=== PATIENT | female | born 1995 | race Caucasian/White ===

== ENCOUNTER 2017-01-14 10:17 | Observation (INO) ==
[2017-01-13 11:00] LABS: Basophils % 0.5 %; Eosinophils # 0.2 K/mcL (0.0-0.6); Eosinophils % 1.8 %; Hematocrit 35.7 % (35.3-44.9); Hemoglobin 10.8 g/dL (11.5-15.4); Immature Granulocytes % 0.2 % (0-4); Lymphocytes # 2.2 K/mcL (0.6-4.6); Lymphocytes % 25.5 %; Mean Corpuscular HGB Conc 30.3 g/dL (31.6-35.5); Mean Corpuscular Hemoglobin 25.6 pg (28.0-33.3); Mean Corpuscular Volume 84.6 fL (83.0-100.0); Mean Platelet Volume 10.5 fL (9.4-12.4); Monocytes # 0.9 K/mcL (0.0-1.3); Monocytes % 10.4 %; Neutrophils # 5.4 K/mcL (1.6-8.9); Nucleated Red Blood Cells 0.2 /100 WBC (0); Platelet Count 259 K/mcL (140-400); Red Blood Count 4.22 M/mcL (3.82-4.97); Segmented Neutrophils % 61.6 %
[2017-01-13 11:05] LABS: Bilirubin,Urine Negative (Negative); Blood,Urine Moderate (Negative); Clarity,Urine Cloudy (Clear); Color,Urine Yellow (Yellow); Glucose,Urine (UA) Normal (Normal); Ketones,Urine Negative (Negative); Leukocyte Esterase,Urine Negative (Negative); Nitrite,Urine Negative (Negative); Protein,Urine >=1000 mg/dL (Neg-Trace); Specific Gravity,Urine > 1.030 (1.010-1.025); Urobilinogen,Urine Normal (Normal)
[2017-01-13 11:08] LABS: Bacteria,Urine Moderate per hpf (None-Few); RBC,Urine 15-30 per hpf (0-3); Squamous Epithelial Cell,Urine Many per lpf (None-Few); WBC,Urine 50-100 per hpf (0-3)
[2017-01-13 11:11] LABS: Creatinine,Urine 164 mg/dL
[2017-01-13 11:12] LABS: Alanine Aminotransferase 6 Units/L (0-55); Aspartate Amino Transferase 22 Units/L (5-34); BUN/Creatinine Ratio 7 (6-26); Blood Urea Nitrogen 7 mg/dL (7-20); Lactate Dehydrogenase 259 Units/L (159-327); Uric Acid 5.2 mg/dL (2.6-6.0); eGFR For African Americans > 60 (> 60); eGFR For Non-African Americans > 60 (> 60)
[2017-01-13 11:28] LABS: Anisocytosis 2+ (Not Present); Platelet Estimate Normal (Normal); Polychromasia 1+ (Not Present)
[2017-01-13 11:30] LABS: Hyaline Casts,Urine Few per lpf (None-Few)
--- NOTE | 2017-01-13 11:51 | OB/GYN History & Physical ---
Date of Encounter: 01/13/17 Time of Encounter: 11:33 Assessment and Plan (1) induced hypertension Current visit: Yes Status: Acute Continues to have elevated BP 130's-140's/93-100 PIH labs drawn and negative. Urine with elevated protein, lab at this time unable to assess urine P/C ratio due to high level of protein. Unsure if protein is elevated by blood, pt denies vaginal bleeding so will obtain st.cath specimen for urinalysis and P/C ratio. Vaginal exam 1.5/80/0 posterior per RN Discussed with Dr. Arroyo. Will make plan after new urine results obtained. Qualifiers: Trimester: third trimester Qualified Code(s): O13.3 - Gestational [ -induced] hypertension without significant proteinuria, third trimester (2) 34 weeks gestation of Current visit: Yes Status: Acute (3) NST (non-stress test) reactive Current visit: Yes Status: Acute Baseline 130 History of Present Illness Chief complaint: Evaluation for PIH HPI: Ms. Spaulding is a 21 year old female at 34 +4 presenting for evaluation of PIH from office following an outpatient blood pressure of 140/92. Associated symptoms include intermittent shortness of breath at minimal activity, such as "climbing out of bed" with an onset of 2 weeks ago. Endorses mild orthopnea. Pt noticed a sudden onset of bilateral LE swelling three weeks ago, which gradually increases over the day. ROS: Pt denies following features, headache ,visual disturbance, photophobia, blurred vision or scotoma ,epigastric pain, restrosternal chest pain,altered mental status. pt also denies urgency, or pain with urination. She endorses active movement, denies vaginal bleeding, contractions or leaking of fluid. Pt's antepatrum anemia with requirement for iron transfusions (5). Pt unware of FMHx of gestational induced hypertension and denies PMHX of HTN. Past Med Surg Social Fam HX - Past Medical History Source: patient Medical history: no medical history Psychiatric history: no psych history - Past Surgical History Surgical History: non-contributory - Social History Smoking Status: Never smoker Smokeless Tobacco Status: No Alcohol use: none Drug use: none - Family History Mother Hx Family Medical Disorders: No (STATES MOTHER HAS NO HEALTH PROBLEMS) Obstetrical History - Pregnancies : 1 Para: 0 Term: 0 : 0 Ab's: 0 Livin Medications and Allergies Vit No.129/Iron/FA [ Tablet] 1 each PO DAILY #30 tablet [Rx] Metoclopramide [Reglan] 10 mg PO QIDAC 12/14/16 [History] Ondansetron [Zofran ODT] 8 mg SL Q4HR PRN 12/14/16 [History] Allergies No Known Allergies Allergy (Verified 01/11/17 13:43) Review of System OB - Cardiovascular Cardiovascular: edema, no chest pain at rest, no chest pain with activity, no irregular heart rhythm, no palpitations - Respiratory Respiratory: dyspnea, dyspnea on exertion, no cough, no pain on inspiration - Gastrointestinal Gastrointestinal: no abdominal pain - Genitourinary Genitourinary: no abnormal vaginal bleeding, no flank pain, no urinary hesitancy Exam - Constitutional Constitutional: no acute distress, thin - HEENT HEENT: PERRL, Normocephaly, Mucus Membranes Moist, Mucus Membranes Dry - Lungs Respiratory exam: CTAB (On my assesment. lungs CTA), rales (fine, lower) - Cardiovascular Cardiovascular exam: RRR, +S1, +S2 - Abdomen Abdomen: Present: bowel sounds normal, gravid, non tender - Extremities Extremities exam: pedal edema (2+ pitting) Deep Tendon Reflex Grade: 4+ Non-Sustained Clonus (lower extremites with non sustained clonus.) - Cervix Dilation: 1 (per RN exam) Effacement: 80 Station: 0 - Uterus Uterus exam: Present: normal size, normal contour Results Result Diagrams: 01/13/17 10:40 01/13/17 10:40 Abnormal lab results Hgb 10.8 g/dL (11.5-15.4) L 01/13/17 10:40 MCH 25.6 pg (28.0-33.3) L 01/13/17 10:40 MCHC 30.3 g/dL (31.6-35.5) L 01/13/17 10:40 Nucleated RBCs/100 WBC 0.2 /100 WBC (0) H 01/13/17 10:40 Polychromasia 1+ (Not Present) A 01/13/17 10:40 Anisocytosis 2+ (Not Present) A 01/13/17 10:40 Urine Clarity Cloudy (Clear) A 01/13/17 10:40 Ur Specific [place] > 1.030 (1.010-1.025) H 01/13/17 10:40 Urine Protein >=1000 mg/dL (Neg-Trace) H 01/13/17 10:40 Urine Blood Moderate (Negative) H 01/13/17 10:40 Urine Microscopic RBC 15-30 per hpf (0-3) H 01/13/17 10:40 Urine Microscopic WBC 50-100 per hpf (0-3) H 01/13/17 10:40 Ur Squamous Epith Cells Many per lpf (None-Few) H 01/13/17 10:40 Urine Bacteria Moderate per hpf (None-Few) H 01/13/17 10:40 Ur Culture Indicated? YES (NO) A 01/13/17 10:40 All other labs normal. - VTE Reasons for not Prescribing Prophylaxis: Treatment not Indicated - Low risk for VTE
[2017-01-13 13:13] LABS: Bilirubin,Urine Negative (Negative); Blood,Urine Moderate (Negative); Clarity,Urine Cloudy (Clear); Color,Urine Yellow (Yellow); Glucose,Urine (UA) Normal (Normal); Ketones,Urine Negative (Negative); Leukocyte Esterase,Urine Negative (Negative); Nitrite,Urine Negative (Negative); Protein,Urine >=1000 mg/dL (Neg-Trace); Specific Gravity,Urine 1.018 (1.010-1.025); Urobilinogen,Urine Normal (Normal)
[2017-01-13 13:17] LABS: Bacteria,Urine Few per hpf (None-Few); Squamous Epithelial Cell,Urine Many per lpf (None-Few)
[2017-01-13 13:34] LABS: Hyaline Casts,Urine Moderate per lpf (None-Few)
[2017-01-13] MEDS: Ringers Solution, Lactated 1,000 ML IVC SCH (14:59)
[2017-01-13 15:11] LABS: Protein/Creatinine Ratio,Urine 15.71 mg/mg (0-0.20)
[2017-01-13] MEDS: cephALEXin 500 MG CAPSULE PO SCH ×2 (16:27→20:41)
[2017-01-14] MEDS: Ringers Solution, Lactated 1,000 ML IVC SCH ×2 (00:20→08:11)
[2017-01-14 04:42] LABS: Basophils % 0.4 %; Eosinophils # 0.1 K/mcL (0.0-0.6); Hematocrit 29.3 % (35.3-44.9); Immature Granulocytes % 0.6 % (0-4); Lymphocytes % 27.9 %; Mean Corpuscular HGB Conc 30.4 g/dL (31.6-35.5); Mean Corpuscular Hemoglobin 25.9 pg (28.0-33.3); Mean Corpuscular Volume 85.2 fL (83.0-100.0); Mean Platelet Volume 10.8 fL (9.4-12.4); Monocytes # 0.6 K/mcL (0.0-1.3); Monocytes % 8.4 %; Neutrophils # 4.4 K/mcL (1.6-8.9); Nucleated Red Blood Cells 0.3 /100 WBC (0); Platelet Count 207 K/mcL (140-400); Red Blood Count 3.44 M/mcL (3.82-4.97); Segmented Neutrophils % 61.7 %
[2017-01-14 04:51] LABS: Alanine Aminotransferase 6 Units/L (0-55); Aspartate Amino Transferase 18 Units/L (5-34); BUN/Creatinine Ratio 9 (6-26); Blood Urea Nitrogen 7 mg/dL (7-20); Lactate Dehydrogenase 209 Units/L (159-327); Uric Acid 4.7 mg/dL (2.6-6.0); eGFR For African Americans > 60 (> 60); eGFR For Non-African Americans > 60 (> 60)
[2017-01-14 04:54] LABS: Hemoglobin 8.9 g/dL (11.5-15.4)
[2017-01-14 05:06] LABS: Protein/Creatinine Ratio,Urine 12.35 mg/mg (0-0.20)
[2017-01-14 05:13] LABS: Anisocytosis 3+ (Not Present); Burr Cells 2+ (Not Present); Platelet Estimate Normal (Normal); Poikilocytosis 1+ (Not Present); Schistocytes 1+ (Not Present)
[2017-01-14 05:36] LABS: Bilirubin,Urine Negative (Negative); Blood,Urine Large (Negative); Clarity,Urine Clear (Clear); Color,Urine Dark Yellow (Yellow); Glucose,Urine (UA) Normal (Normal); Ketones,Urine Negative (Negative); Leukocyte Esterase,Urine Negative (Negative); Nitrite,Urine Negative (Negative); PH,Urine 6.5 pH Units (5.0-8.0); Protein,Urine >=1000 mg/dL (Neg-Trace); Specific Gravity,Urine 1.028 (1.010-1.025); Urobilinogen,Urine Normal (Normal)
[2017-01-14 05:38] LABS: RBC,Urine 50-100 per hpf (0-3); WBC,Urine 30-50 per hpf (0-3)
[2017-01-14 05:49] LABS: Squamous Epithelial Cell,Urine Many per lpf (None-Few)
[2017-01-14 05:50] LABS: Bacteria,Urine Many per hpf (None-Few); Hyaline Casts,Urine Few per lpf (None-Few)
--- NOTE | 2017-01-14 05:56 | OB/GYN Progress Note ---
Date of Encounter: 01/14/17 Time of Encounter: 05:48 - Assessment and Plan (1) induced hypertension Current Visit: Yes Status: Acute Denies PIH symptoms. AM labs negative except P/C ratio of 12, but also shows large blood Will discuss lab results and plan of care with Dr. Arroyo. Qualifiers: Trimester: third trimester Qualified Code(s): O13.3 - Gestational [ -induced] hypertension without significant proteinuria, third trimester (2) 34 weeks gestation of Current Visit: Yes Status: Acute (3) NST (non-stress test) reactive Current Visit: Yes Status: Acute Baseline 130 Subjective - Subjective Interval history: Pt states feels well. Reports good movement, denies leaking of fluid or contractions. Pt has had some red/brown discharge from previous vaginal exams. Denies headache, visual changes, abdominal pain. Antepartum ROS: vaginal bleeding, movement normal, no new complaints, no loss of fluid, no contractions Objective - Vital Signs Vital Signs: Intake and Output 01/13/17 01/13/17 01/14/17 15:59 23:59 07:59 Intake Total 1000 / 1000 1000 / 1000 Balance 1000 / 1000 1000 / 1000 Intake: IV Fluids 1000 / 1000 1000 / 1000 Lactated Ringers 1,000 ML 1000 / 1000 1000 / 1000 @ 125 mls/hr IVC .Q8H [facility] Rx#:[id number] Other: Weight 60.8 kg - Exam FHR: auscultation normal FHR comments: Baseline 135 Auscultation: bilateral: normal Abdomen: Present: normal appearance, soft, gravid Cervical dilation: 2/80/ Per RN exam - Labs Labs: Abnormal lab results RBC 3.44 M/mcL (3.82-4.97) L 01/14/17 04:05 Hgb 8.9 g/dL (11.5-15.4) L D 01/14/17 04:05 Hct 29.3 % (35.3-44.9) L 01/14/17 04:05 MCH 25.9 pg (28.0-33.3) L 01/14/17 04:05 MCHC 30.4 g/dL (31.6-35.5) L 01/14/17 04:05 Nucleated RBCs/100 WBC 0.3 /100 WBC (0) H 01/14/17 04:05 Polychromasia 1+ (Not Present) A 01/13/17 10:40 Poikilocytosis 1+ (Not Present) A 01/14/17 04:05 Anisocytosis 3+ (Not Present) A 01/14/17 04:05 [place] Cells 2+ (Not Present) A 01/14/17 04:05 Schistocytes 1+ (Not Present) A 01/14/17 04:05 Ur Specific [place] 1.028 (1.010-1.025) H 01/14/17 04:10 Urine Protein >=1000 mg/dL (Neg-Trace) H 01/14/17 04:10 Urine Blood Large (Negative) H 01/14/17 04:10 Urine Microscopic RBC 5-15 per hpf (0-3) H 01/13/17 12:40 Urine Microscopic WBC 5-15 per hpf (0-3) H 01/13/17 12:40 Ur Squamous Epith Cells Many per lpf (None-Few) H 01/13/17 12:40 Hyaline Casts Moderate per lpf (None-Few) H 01/13/17 12:40 Ur Culture Indicated? YES (NO) A 01/13/17 12:40 Protein/Creatinin Ratio 12.35 mg/mg (0-0.20) H 01/14/17 04:10 Urine Total Protein 1716 mg/dL (1-14) H 01/14/17 04:10
--- NOTE | 2017-01-14 08:28 | OB/GYN Progress Note ---
Date of Encounter: 01/14/17 Time of Encounter: 08:20 - Assessment and Plan (1) First in adolescent 16 years of age or older in third trimester Current Visit: Yes Status: Acute (2) 34 weeks gestation of Current Visit: Yes Status: Acute (3) Gross hematuria Current Visit: Yes Status: Acute We will order a renal ultrasound to rule out stones, urinary catheter placed repeat urinalysis and protein creatinine ratio, hematology consult placed, repeat PIH labs at noon. (4) induced hypertension Current Visit: Yes Status: Acute Qualifiers: Trimester: third trimester Qualified Code(s): O13.3 - Gestational [ -induced] hypertension without significant proteinuria, third trimester (5) Iron deficiency anemia during , antepartum Current Visit: No Status: Acute Subjective - Subjective Interval history: patient having no complaints at this time states she is not having any headaches blurred vision or scotoma. Patient is still extremely edematous both lower extremities and labia. Patient's hemoglobin did drop throughout the night and continues to show large amounts of blood in the urine. Patient was examined through the night and this blood might be contamination from the vagina. She states she does have bleeding after the examinations. 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 We will consult later today requested a bilirubin and reticulocyte. We will go ahead and repeat PIH labs place a catheter get another urinalysis on the patient as a catheter specimen and repeat protein creatinine ratio which is extremely high. We will get an ultrasound of the kidneys and bladder to rule out stones as a course at this gross hematuria since she is not complaining of any dysuria urgency or frequency. Baby still looks appropriate on the monitor occasional contractions seen. Patient on admission yesterday weight 60 kg this morning she weighs 63 kg. She did get fluid throughout the night. Objective - Vital Signs Vital Signs: Intake and Output 01/13/17 01/14/17 01/14/17 23:59 07:59 15:59 Intake Total 1000 / 1000 1000 / 1000 Balance 1000 / 1000 1000 / 1000 Intake: IV Fluids 1000 / 1000 1000 / 1000 Lactated Ringers 1,000 ML 1000 / 1000 1000 / 1000 @ 125 mls/hr IVC .Q8H [facility] Rx#:[id number] - Exam FHR: category 1 FHR comments: heart tones 140s reassuring occasional contractions and Auscultation: bilateral: normal Abdomen: Present: normal appearance Uterus: Present: normal Comments: Patient has +2+3 pitting edema lower extremities edema of the perineum. - Labs Labs: Abnormal lab results RBC 3.44 M/mcL (3.82-4.97) L 01/14/17 04:05 Hgb 8.9 g/dL (11.5-15.4) L D 01/14/17 04:05 Hct 29.3 % (35.3-44.9) L 01/14/17 04:05 MCH 25.9 pg (28.0-33.3) L 01/14/17 04:05 MCHC 30.4 g/dL (31.6-35.5) L 01/14/17 04:05 Nucleated RBCs/100 WBC 0.3 /100 WBC (0) H 01/14/17 04:05 Polychromasia 1+ (Not Present) A 01/13/17 10:40 Poikilocytosis 1+ (Not Present) A 01/14/17 04:05 Anisocytosis 3+ (Not Present) A 01/14/17 04:05 [place] Cells 2+ (Not Present) A 01/14/17 04:05 Schistocytes 1+ (Not Present) A 01/14/17 04:05 Ur Specific [place] 1.028 (1.010-1.025) H 01/14/17 04:10 Urine Protein >=1000 mg/dL (Neg-Trace) H 01/14/17 04:10 Urine Blood Large (Negative) H 01/14/17 04:10 Urine Microscopic RBC 50-100 per hpf (0-3) H 01/14/17 04:10 Urine Microscopic WBC 30-50 per hpf (0-3) H 01/14/17 04:10 Ur Squamous Epith Cells Many per lpf (None-Few) H 01/14/17 04:10 Urine Bacteria Many per hpf (None-Few) H 01/14/17 04:10 Ur Culture Indicated? YES (NO) A 01/13/17 12:40 Protein/Creatinin Ratio 12.35 mg/mg (0-0.20) H 01/14/17 04:10 Urine Total Protein 1716 mg/dL (1-14) H 01/14/17 04:10
[2017-01-14 08:45] LABS: Bilirubin,Urine Negative (Negative); Blood,Urine Moderate (Negative); Clarity,Urine Turbid (Clear); Color,Urine Yellow (Yellow); Glucose,Urine (UA) Normal (Normal); Ketones,Urine Negative (Negative); Leukocyte Esterase,Urine Negative (Negative); Nitrite,Urine Negative (Negative); Protein,Urine >=300 mg/dL (Neg-Trace); Specific Gravity,Urine 1.017 (1.010-1.025); Urobilinogen,Urine Normal (Normal)
[2017-01-14 08:47] LABS: Squamous Epithelial Cell,Urine Many per lpf (None-Few); WBC,Urine 30-50 per hpf (0-3)
[2017-01-14 09:06] LABS: Bacteria,Urine Moderate per hpf (None-Few); Hyaline Casts,Urine Few per lpf (None-Few)
[2017-01-14 10:08] LABS: Protein/Creatinine Ratio,Urine 13.31 mg/mg (0-0.20)
[~2017-01-14 10:17] MED LIST: Ringers Solution, Lactated 1,000 ML IVC ONE; Ringers Solution, Lactated 1,000 ML ONE
[2017-01-14 12:04] LABS: Basophils % 0.6 %; Eosinophils # 0.1 K/mcL (0.0-0.6); Eosinophils % 1.3 %; Hematocrit 30.6 % (35.3-44.9); Hemoglobin 9.2 g/dL (11.5-15.4); Immature Granulocytes % 0.6 % (0-4); Immature Platelets 3.5 % (1.1-6.1); Immature Reticulocyte % 34.1 % (11.0-38.0); Lymphocytes # 1.7 K/mcL (0.6-4.6); Lymphocytes % 25.1 %; Mean Corpuscular HGB Conc 30.1 g/dL (31.6-35.5); Mean Corpuscular Hemoglobin 25.6 pg (28.0-33.3); Mean Corpuscular Volume 85.2 fL (83.0-100.0); Monocytes # 0.5 K/mcL (0.0-1.3); Monocytes % 7.9 %; Nucleated Red Blood Cells 0.3 /100 WBC (0); Platelet Count 217 K/mcL (140-400); Red Blood Count 3.59 M/mcL (3.82-4.97); Retculocyte # 0.13 M/mcL (0.05-0.10); Reticulocyte % 3.7 % (1.6-2.8); Segmented Neutrophils % 64.5 %
[2017-01-14 12:07] LABS: Neutrophils # 4.3 K/mcL (1.6-8.9)
[2017-01-14 12:11] LABS: Blood Urea Nitrogen 7 mg/dL (7-20)
[2017-01-14 12:12] LABS: Aspartate Amino Transferase 18 Units/L (5-34); BUN/Creatinine Ratio 9 (6-26); Bilirubin,Direct 0.1 mg/dL (0.0-0.5); Bilirubin,Total 0.4 mg/dL (0.2-1.2); Lactate Dehydrogenase 217 Units/L (159-327); Uric Acid 4.5 mg/dL (2.6-6.0); eGFR For African Americans > 60 (> 60); eGFR For Non-African Americans > 60 (> 60)
[2017-01-14 12:13] LABS: Alanine Aminotransferase < 6 Units/L (0-55)
[2017-01-14 12:26] LABS: Anisocytosis 2+ (Not Present)
[2017-01-14 12:27] LABS: Burr Cells 1+ (Not Present); Platelet Estimate Normal (Normal); Polychromasia 1+ (Not Present)
[2017-01-14] MEDS ORDERED: Ringers Solution, Lactated 1,000 ML IVC SCH (13:00)
[2017-01-14] MEDS ORDERED: Betamethasone Acet/SodPhos 6 MG/ML MDV IM SCH (13:00)
--- NOTE | 2017-01-14 13:00 | Oncology Inp Consult Note ---
Date of Encounter: 01/14/17 Time of Encounter: 12:00 Assessment and Plan (1) Iron deficiency anemia during , antepartum Status: Acute Assessment and plan: Ms. Spaulding has iron deficiency anemia of . She is completed 5 doses of Venofer. Iron studies were adequate. No further iron is indicated at the current juncture Regarding the presence of schistocytes on her smear, she has no evidence of hemolysis. Her LDH and bilirubin are both normal. I do not see an underlying hematologic cause of her issues. She appears to have preeclampsia. Dr. Patricia is planning for possible transfer to [facility]. I will defer management to him but I will be available to help if she does stay in the [place] system. - Data of Consult Requesting Physician: Von Arroyo Primary Care Provider: Kristi Levine CNP - Consult Narrative Reason for consult: Anemia, known to you History of present illness: Ms. Spaulding is a 21 year old female who I met approximately 4 weeks ago for iron deficiency in the setting of . I administered 5 doses of Venofer which was well-tolerated. Hemoglobin increased from 7.5 to 10.0 and iron studies were adequate at our visit just this week. Patient did develop lower extremity edema at 2+ about 2 weeks prior to our visit this past week. She was hypertensive at 144/104 in our office as well. I recommended she recheck her blood pressure and discuss with her acupuncture physician whom she had appointment with later that week. Patient was found to have significant proteinuria and hypertension was admitted to the hospital. I was contacted by Dr. Patricia has her hemoglobin dropped to 8.9. White blood cell and platelet counts were both normal. She did have 1+ schistocytes on her smear but her LDH was normal as was her bilirubin. She has had some hematuria as well. Currently Mrs. Spaulding feels well. She has had some nausea earlier this morning which has resolved. Edema is stable. Past Med Surg Social Fam HX - Past Medical History Medical history: no medical history Psychiatric history: no psych history - Past Surgical History Surgical History: non-contributory - Social History Smoking Status: Never smoker Smokeless Tobacco Status: No Alcohol use: none Drug use: none - Family History Mother Hx Family Medical Disorders: No (STATES MOTHER HAS NO HEALTH PROBLEMS) Medications and Allergies Vit No.129/Iron/FA [ Tablet] 1 each PO DAILY #30 tablet [Rx] Metoclopramide [Reglan] 10 mg PO QIDAC 12/14/16 [History] Ondansetron [Zofran ODT] 8 mg SL Q4HR PRN 12/14/16 [History] Allergies No Known Allergies Allergy (Verified 01/11/17 13:43) All systems: reviewed and no additional remarkable complaints except as stated Constitutional: Present: fatigue, weight gain Cardiovascular: Present: edema Gastrointestinal: Present: nausea Oncology - Exam - Constitutional General appearance: cooperative, no acute distress - Head Head exam: Present: atraumatic, normal inspection, normocephalic - Eye Eye exam: Present: conjuntiva pink, sclera anicteric - ENT ENT exam: Present: mucous membranes moist, normal exam - Neck Neck exam: Present: normal inspection - Respiratory Respiratory exam: Present: CTAB - Cardiovascular Cardiovascular exam: Present: RRR - GI/Abdominal GI/Abdominal exam: Present: distended (gravid), soft - Extremities Exam Extremities exam: Present: pedal edema Oncology - Results - Labs Labs: Short CBC Urine 01/13/17 01/14/17 01/14/17 Range/Units 12:40 04:10 08:15 Urine Color Yellow Dark Yellow Yellow (Yellow) Urine Clarity Cloudy A Clear Turbid A (Clear) Urine pH 7.0 6.5 7.0 (5.0-8.0) pH Units Ur Specific [place] 1.018 1.028 H 1.017 (1.010-1.025) Urine Protein >=1000 H >=1000 H >=300 H (Neg-Trace) mg/dL Urine Glucose (UA) Normal Normal Normal (Normal) mg/dL Lab Results 01/13/17 01/13/17 01/13/17 Range/Units 10:40 10:40 10:40 WBC 8.8 (4.3-11.1) K/mcL RBC 4.22 (3.82-4.97) M/mcL Hgb 10.8 L (11.5-15.4) g/dL Hct 35.7 (35.3-44.9) % MCV 84.6 (83.0-100.0) fL MCH 25.6 L (28.0-33.3) pg MCHC 30.3 L (31.6-35.5) g/dL RDW Plt Count 259 (140-400) K/mcL MPV 10.5 (9.4-12.4) fL Reticulocyte # (0.05-0.10) M/mcL Immature Gran % 0.2 (0-4) % Seg Neutrophils % 61.6 % Lymphocytes % 25.5 % Monocytes % 10.4 % Eosinophils % 1.8 % Basophils % 0.5 % Neutrophils # 5.4 (1.6-8.9) K/mcL Lymphocytes # 2.2 (0.6-4.6) K/mcL Monocytes # 0.9 (0.0-1.3) K/mcL Eosinophils # 0.2 (0.0-0.6) K/mcL Basophils # 0.0 (0.0-0.2) K/mcL Nucleated RBCs/100 WBC 0.2 H (0) /100 WBC Platelet Estimate Normal (Normal) Immature Plt Fraction (1.1-6.1) % Polychromasia 1+ A (Not Present) Poikilocytosis (Not Present) Anisocytosis 2+ A (Not Present) [place] Cells (Not Present) Schistocytes (Not Present) Percent Retic (1.6-2.8) % Immature Retic Fraction (11.0-38.0) % Retic Hgb Equivalent (28.61-36.33) pg BUN (7-20) mg/dL Creatinine (0.57-1.11) mg/dL Est GFR ( Amer) (> 60) Est GFR (Non-Af Amer) (> 60) BUN/Creatinine Ratio (6-26) Uric Acid (2.6-6.0) mg/dL Total Bilirubin (0.2-1.2) mg/dL Direct Bilirubin (0.0-0.5) mg/dL AST (5-34) Units/L ALT (0-55) Units/L Lactate Dehydrogenase (159-327) Units/L Urine Color Yellow (Yellow) Urine Clarity Cloudy A (Clear) Urine pH 7.0 (5.0-8.0) pH Units Ur Specific [place] > 1.030 H (1.010-1.025) Urine Protein >=1000 H (Neg-Trace) mg/dL Urine Glucose (UA) Normal (Normal) mg/dL Urine Ketones Negative (Negative) mg/dL Urine Blood Moderate H (Negative) Urine Nitrite Negative (Negative) Urine Bilirubin Negative (Negative) Urine Urobilinogen Normal (Normal) mg/dL Ur Leukocyte Esterase Negative (Negative) Urine Microscopic RBC 15-30 H (0-3) per hpf Urine Microscopic WBC 50-100 H (0-3) per hpf Ur Squamous Epith Cells Many H (None-Few) per lpf Urine Bacteria Moderate H (None-Few) per hpf Hyaline Casts Few (None-Few) per lpf Ur Culture Indicated? YES A (NO) Urine Creatinine 164 mg/dL Protein/Creatinin Ratio (0-0.20) mg/mg Urine Total Protein > 2000 H (1-14) mg/dL Hep Bs Antigen (Nonreactive) 01/13/17 01/13/17 01/13/17 Range/Units 10:40 12:40 12:40 WBC (4.3-11.1) K/mcL RBC (3.82-4.97) M/mcL Hgb (11.5-15.4) g/dL Hct (35.3-44.9) % MCV (83.0-100.0) fL MCH (28.0-33.3) pg MCHC (31.6-35.5) g/dL RDW Plt Count (140-400) K/mcL MPV (9.4-12.4) fL Reticulocyte # (0.05-0.10) M/mcL Immature Gran % (0-4) % Seg Neutrophils % % Lymphocytes % % Monocytes % % Eosinophils % % Basophils % % Neutrophils # (1.6-8.9) K/mcL Lymphocytes # (0.6-4.6) K/mcL Monocytes # (0.0-1.3) K/mcL Eosinophils # (0.0-0.6) K/mcL Basophils # (0.0-0.2) K/mcL Nucleated RBCs/100 WBC (0) /100 WBC Platelet Estimate (Normal) Immature Plt Fraction (1.1-6.1) % Polychromasia (Not Present) Poikilocytosis (Not Present) Anisocytosis (Not Present) [place] Cells (Not Present) Schistocytes (Not Present) Percent Retic (1.6-2.8) % Immature Retic Fraction (11.0-38.0) % Retic Hgb Equivalent (28.61-36.33) pg BUN 7 (7-20) mg/dL Creatinine 0.99 (0.57-1.11) mg/dL Est GFR ( Amer) > 60 (> 60) Est GFR (Non-Af Amer) > 60 (> 60) BUN/Creatinine Ratio 7 (6-26) Uric Acid 5.2 (2.6-6.0) mg/dL Total Bilirubin (0.2-1.2) mg/dL Direct Bilirubin (0.0-0.5) mg/dL AST 22 (5-34) Units/L ALT 6 (0-55) Units/L Lactate Dehydrogenase 259 (159-327) Units/L Urine Color Yellow (Yellow) Urine Clarity Cloudy A (Clear) Urine pH 7.0 (5.0-8.0) pH Units Ur Specific [place] 1.018 (1.010-1.025) Urine Protein >=1000 H (Neg-Trace) mg/dL Urine Glucose (UA) Normal (Normal) mg/dL Urine Ketones Negative (Negative) mg/dL Urine Blood Moderate H (Negative) Urine Nitrite Negative (Negative) Urine Bilirubin Negative (Negative) Urine Urobilinogen Normal (Normal) mg/dL Ur Leukocyte Esterase Negative (Negative) Urine Microscopic RBC 5-15 H (0-3) per hpf Urine Microscopic WBC 5-15 H (0-3) per hpf Ur Squamous Epith Cells Many H (None-Few) per lpf Urine Bacteria Few (None-Few) per hpf Hyaline Casts Moderate H (None-Few) per lpf Ur Culture Indicated? YES A (NO) Urine Creatinine 83 mg/dL Protein/Creatinin Ratio 15.71 H (0-0.20) mg/mg Urine Total Protein 1304 H (1-14) mg/dL Hep Bs Antigen (Nonreactive) 01/13/17 01/14/17 01/14/17 Range/Units 13:37 04:05 04:05 WBC 7.1 (4.3-11.1) K/mcL RBC 3.44 L (3.82-4.97) M/mcL Hgb 8.9 L D (11.5-15.4) g/dL Hct 29.3 L (35.3-44.9) % MCV 85.2 (83.0-100.0) fL MCH 25.9 L (28.0-33.3) pg MCHC 30.4 L (31.6-35.5) g/dL RDW TNP Plt Count 207 (140-400) K/mcL MPV 10.8 (9.4-12.4) fL Reticulocyte # (0.05-0.10) M/mcL Immature Gran % 0.6 (0-4) % Seg Neutrophils % 61.7 % Lymphocytes % 27.9 % Monocytes % 8.4 % Eosinophils % 1.0 % Basophils % 0.4 % Neutrophils # 4.4 (1.6-8.9) K/mcL Lymphocytes # 2.0 (0.6-4.6) K/mcL Monocytes # 0.6 (0.0-1.3) K/mcL Eosinophils # 0.1 (0.0-0.6) K/mcL Basophils # 0.0 (0.0-0.2) K/mcL Nucleated RBCs/100 WBC 0.3 H (0) /100 WBC Platelet Estimate Normal (Normal) Immature Plt Fraction (1.1-6.1) % Polychromasia (Not Present) Poikilocytosis 1+ A (Not Present) Anisocytosis 3+ A (Not Present) [place] Cells 2+ A (Not Present) Schistocytes 1+ A (Not Present) Percent Retic (1.6-2.8) % Immature Retic Fraction (11.0-38.0) % Retic Hgb Equivalent (28.61-36.33) pg BUN 7 (7-20) mg/dL Creatinine 0.80 (0.57-1.11) mg/dL Est GFR ( Amer) > 60 (> 60) Est GFR (Non-Af Amer) > 60 (> 60) BUN/Creatinine Ratio 9 (6-26) Uric Acid 4.7 (2.6-6.0) mg/dL Total Bilirubin (0.2-1.2) mg/dL Direct Bilirubin (0.0-0.5) mg/dL AST 18 (5-34) Units/L ALT 6 (0-55) Units/L Lactate Dehydrogenase 209 (159-327) Units/L Urine Color (Yellow) Urine Clarity (Clear) Urine pH (5.0-8.0) pH Units Ur Specific [place] (1.010-1.025) Urine Protein (Neg-Trace) mg/dL Urine Glucose (UA) (Normal) mg/dL Urine Ketones (Negative) mg/dL Urine Blood (Negative) Urine Nitrite (Negative) Urine Bilirubin (Negative) Urine Urobilinogen (Normal) mg/dL Ur Leukocyte Esterase (Negative) Urine Microscopic RBC (0-3) per hpf Urine Microscopic WBC (0-3) per hpf Ur Squamous Epith Cells (None-Few) per lpf Urine Bacteria (None-Few) per hpf Hyaline Casts (None-Few) per lpf Ur Culture Indicated? (NO) Urine Creatinine mg/dL Protein/Creatinin Ratio (0-0.20) mg/mg Urine Total Protein (1-14) mg/dL Hep Bs Antigen Nonreactive (Nonreactive) 01/14/17 01/14/17 01/14/17 Range/Units 04:10 04:10 08:15 WBC (4.3-11.1) K/mcL RBC (3.82-4.97) M/mcL Hgb (11.5-15.4) g/dL Hct (35.3-44.9) % MCV (83.0-100.0) fL MCH (28.0-33.3) pg MCHC (31.6-35.5) g/dL RDW Plt Count (140-400) K/mcL MPV (9.4-12.4) fL Reticulocyte # (0.05-0.10) M/mcL Immature Gran % (0-4) % Seg Neutrophils % % Lymphocytes % % Monocytes % % Eosinophils % % Basophils % % Neutrophils # (1.6-8.9) K/mcL Lymphocytes # (0.6-4.6) K/mcL Monocytes # (0.0-1.3) K/mcL Eosinophils # (0.0-0.6) K/mcL Basophils # (0.0-0.2) K/mcL Nucleated RBCs/100 WBC (0) /100 WBC Platelet Estimate (Normal) Immature Plt Fraction (1.1-6.1) % Polychromasia (Not Present) Poikilocytosis (Not Present) Anisocytosis (Not Present) [place] Cells (Not Present) Schistocytes (Not Present) Percent Retic (1.6-2.8) % Immature Retic Fraction (11.0-38.0) % Retic Hgb Equivalent (28.61-36.33) pg BUN (7-20) mg/dL Creatinine (0.57-1.11) mg/dL Est GFR ( Amer) (> 60) Est GFR (Non-Af Amer) (> 60) BUN/Creatinine Ratio (6-26) Uric Acid (2.6-6.0) mg/dL Total Bilirubin (0.2-1.2) mg/dL Direct Bilirubin (0.0-0.5) mg/dL AST (5-34) Units/L ALT (0-55) Units/L Lactate Dehydrogenase (159-327) Units/L Urine Color Dark Yellow Yellow (Yellow) Urine Clarity Clear Turbid A (Clear) Urine pH 6.5 7.0 (5.0-8.0) pH Units Ur Specific [place] 1.028 H 1.017 (1.010-1.025) Urine Protein >=1000 H >=300 H (Neg-Trace) mg/dL Urine Glucose (UA) Normal Normal (Normal) mg/dL Urine Ketones Negative Negative (Negative) mg/dL Urine Blood Large H Moderate H (Negative) Urine Nitrite Negative Negative (Negative) Urine Bilirubin Negative Negative (Negative) Urine Urobilinogen Normal Normal (Normal) mg/dL Ur Leukocyte Esterase Negative Negative (Negative) Urine Microscopic RBC 50-100 H 5-15 H (0-3) per hpf Urine Microscopic WBC 30-50 H 30-50 H (0-3) per hpf Ur Squamous Epith Cells Many H Many H (None-Few) per lpf Urine Bacteria Many H Moderate H (None-Few) per hpf Hyaline Casts Few Few (None-Few) per lpf Ur Culture Indicated? YES A (NO) Urine Creatinine 139 mg/dL Protein/Creatinin Ratio 12.35 H (0-0.20) mg/mg Urine Total Protein 1716 H (1-14) mg/dL Hep Bs Antigen (Nonreactive) 01/14/17 01/14/17 01/14/17 Range/Units 08:15 11:46 11:46 WBC 6.7 (4.3-11.1) K/mcL RBC 3.59 L (3.82-4.97) M/mcL Hgb 9.2 L (11.5-15.4) g/dL Hct 30.6 L (35.3-44.9) % MCV 85.2 (83.0-100.0) fL MCH 25.6 L (28.0-33.3) pg MCHC 30.1 L (31.6-35.5) g/dL RDW TNP Plt Count 217 (140-400) K/mcL MPV 11.0 (9.4-12.4) fL Reticulocyte # 0.13 H (0.05-0.10) M/mcL Immature Gran % 0.6 (0-4) % Seg Neutrophils % 64.5 % Lymphocytes % 25.1 % Monocytes % 7.9 % Eosinophils % 1.3 % Basophils % 0.6 % Neutrophils # 4.3 (1.6-8.9) K/mcL Lymphocytes # 1.7 (0.6-4.6) K/mcL Monocytes # 0.5 (0.0-1.3) K/mcL Eosinophils # 0.1 (0.0-0.6) K/mcL Basophils # 0.0 (0.0-0.2) K/mcL Nucleated RBCs/100 WBC 0.3 H (0) /100 WBC Platelet Estimate Normal (Normal) Immature Plt Fraction 3.5 (1.1-6.1) % Polychromasia 1+ A (Not Present) Poikilocytosis (Not Present) Anisocytosis 2+ A (Not Present) [place] Cells 1+ A (Not Present) Schistocytes (Not Present) Percent Retic 3.7 H (1.6-2.8) % Immature Retic Fraction 34.1 (11.0-38.0) % Retic Hgb Equivalent 36.8 H (28.61-36.33) pg BUN 7 (7-20) mg/dL Creatinine 0.81 (0.57-1.11) mg/dL Est GFR ( Amer) > 60 (> 60) Est GFR (Non-Af Amer) > 60 (> 60) BUN/Creatinine Ratio 9 (6-26) Uric Acid 4.5 (2.6-6.0) mg/dL Total Bilirubin 0.4 (0.2-1.2) mg/dL Direct Bilirubin 0.1 (0.0-0.5) mg/dL AST 18 (5-34) Units/L ALT < 6 (0-55) Units/L Lactate Dehydrogenase 217 (159-327) Units/L Urine Color (Yellow) Urine Clarity (Clear) Urine pH (5.0-8.0) pH Units Ur Specific [place] (1.010-1.025) Urine Protein (Neg-Trace) mg/dL Urine Glucose (UA) (Normal) mg/dL Urine Ketones (Negative) mg/dL Urine Blood (Negative) Urine Nitrite (Negative) Urine Bilirubin (Negative) Urine Urobilinogen (Normal) mg/dL Ur Leukocyte Esterase (Negative) Urine Microscopic RBC (0-3) per hpf Urine Microscopic WBC (0-3) per hpf Ur Squamous Epith Cells (None-Few) per lpf Urine Bacteria (None-Few) per hpf Hyaline Casts (None-Few) per lpf Ur Culture Indicated? (NO) Urine Creatinine 58 mg/dL Protein/Creatinin Ratio 13.31 H (0-0.20) mg/mg Urine Total Protein 772 H (1-14) mg/dL Hep Bs Antigen (Nonreactive) Consult Discharge Plan - Plan Referrals: Kristi Levine, ROOM SERVICE MANAGER [Primary Care Provider] -
--- NOTE | 2017-01-14 13:02 | Discharge Summary ---
Date of Encounter: 01/14/17 Time of Encounter: 12:00 - Discharge Diagnosis (1) First in adolescent 16 years of age or older in third trimester Priority: Primary Status: Acute (2) 34 weeks gestation of Priority: Primary Status: Acute (3) Gross hematuria Priority: Secondary Status: Acute (4) induced hypertension Priority: Primary Status: Acute Comments: will transfer to [facility] Qualifiers: Qualified Code(s): O13.3 - Gestational [-induced] hypertension without significant proteinuria, third trimester (5) Iron deficiency anemia during , antepartum Priority: Secondary Status: Acute - Discharge Medications Home Medications: Vit No.129/Iron/FA [ Tablet] 1 each PO DAILY #30 tablet [Rx] Metoclopramide [Reglan] 10 mg PO QIDAC 12/14/16 [History] Ondansetron [Zofran ODT] 8 mg SL Q4HR PRN 12/14/16 [History] Allergies/Adverse Reactions: Allergies No Known Allergies Allergy (Verified 01/11/17 13:43) Data Procedures and tests throughout hospitalization: Laboratory Tests 01/13/17 01/13/17 01/13/17 10:40 10:40 10:40 WBC 8.8 RBC 4.22 Hgb 10.8 L Hct 35.7 MCV 84.6 MCH 25.6 L MCHC 30.3 L RDW Plt Count 259 MPV 10.5 Reticulocyte # Immature Gran % 0.2 Seg Neutrophils % 61.6 Lymphocytes % 25.5 Monocytes % 10.4 Eosinophils % 1.8 Basophils % 0.5 Neutrophils # 5.4 Lymphocytes # 2.2 Monocytes # 0.9 Eosinophils # 0.2 Basophils # 0.0 Nucleated RBCs/100 WBC 0.2 H Platelet Estimate Normal Immature Plt Fraction Polychromasia 1+ A Poikilocytosis Anisocytosis 2+ A [place] Cells Schistocytes Percent Retic Immature Retic Fraction Retic Hgb Equivalent BUN Creatinine Est GFR ( Amer) Est GFR (Non-Af Amer) BUN/Creatinine Ratio Uric Acid Total Bilirubin Direct Bilirubin AST ALT Lactate Dehydrogenase Urine Color Yellow Urine Clarity Cloudy A Urine pH 7.0 Ur Specific [place] > 1.030 H Urine Protein >=1000 H Urine Glucose (UA) Normal Urine Ketones Negative Urine Blood Moderate H Urine Nitrite Negative Urine Bilirubin Negative Urine Urobilinogen Normal Ur Leukocyte Esterase Negative Urine Microscopic RBC 15-30 H Urine Microscopic WBC 50-100 H Ur Squamous Epith Cells Many H Urine Bacteria Moderate H Hyaline Casts Few Ur Culture Indicated? YES A Urine Creatinine 164 Protein/Creatinin Ratio Urine Total Protein > 2000 H Hep Bs Antigen 01/13/17 01/13/17 01/13/17 10:40 12:40 12:40 WBC RBC Hgb Hct MCV MCH MCHC RDW Plt Count MPV Reticulocyte # Immature Gran % Seg Neutrophils % Lymphocytes % Monocytes % Eosinophils % Basophils % Neutrophils # Lymphocytes # Monocytes # Eosinophils # Basophils # Nucleated RBCs/100 WBC Platelet Estimate Immature Plt Fraction Polychromasia Poikilocytosis Anisocytosis [place] Cells Schistocytes Percent Retic Immature Retic Fraction Retic Hgb Equivalent BUN 7 Creatinine 0.99 Est GFR ( Amer) > 60 Est GFR (Non-Af Amer) > 60 BUN/Creatinine Ratio 7 Uric Acid 5.2 Total Bilirubin Direct Bilirubin AST 22 ALT 6 Lactate Dehydrogenase 259 Urine Color Yellow Urine Clarity Cloudy A Urine pH 7.0 Ur Specific [place] 1.018 Urine Protein >=1000 H Urine Glucose (UA) Normal Urine Ketones Negative Urine Blood Moderate H Urine Nitrite Negative Urine Bilirubin Negative Urine Urobilinogen Normal Ur Leukocyte Esterase Negative Urine Microscopic RBC 5-15 H Urine Microscopic WBC 5-15 H Ur Squamous Epith Cells Many H Urine Bacteria Few Hyaline Casts Moderate H Ur Culture Indicated? YES A Urine Creatinine 83 Protein/Creatinin Ratio 15.71 H Urine Total Protein 1304 H Hep Bs Antigen 01/13/17 01/14/17 01/14/17 13:37 04:05 04:05 WBC 7.1 RBC 3.44 L Hgb 8.9 L D Hct 29.3 L MCV 85.2 MCH 25.9 L MCHC 30.4 L RDW TNP Plt Count 207 MPV 10.8 Reticulocyte # Immature Gran % 0.6 Seg Neutrophils % 61.7 Lymphocytes % 27.9 Monocytes % 8.4 Eosinophils % 1.0 Basophils % 0.4 Neutrophils # 4.4 Lymphocytes # 2.0 Monocytes # 0.6 Eosinophils # 0.1 Basophils # 0.0 Nucleated RBCs/100 WBC 0.3 H Platelet Estimate Normal Immature Plt Fraction Polychromasia Poikilocytosis 1+ A Anisocytosis 3+ A [place] Cells 2+ A Schistocytes 1+ A Percent Retic Immature Retic Fraction Retic Hgb Equivalent BUN 7 Creatinine 0.80 Est GFR ( Amer) > 60 Est GFR (Non-Af Amer) > 60 BUN/Creatinine Ratio 9 Uric Acid 4.7 Total Bilirubin Direct Bilirubin AST 18 ALT 6 Lactate Dehydrogenase 209 Urine Color Urine Clarity Urine pH Ur Specific [place] Urine Protein Urine Glucose (UA) Urine Ketones Urine Blood Urine Nitrite Urine Bilirubin Urine Urobilinogen Ur Leukocyte Esterase Urine Microscopic RBC Urine Microscopic WBC Ur Squamous Epith Cells Urine Bacteria Hyaline Casts Ur Culture Indicated? Urine Creatinine Protein/Creatinin Ratio Urine Total Protein Hep Bs Antigen Nonreactive 01/14/17 01/14/17 01/14/17 04:10 04:10 08:15 WBC RBC Hgb Hct MCV MCH MCHC RDW Plt Count MPV Reticulocyte # Immature Gran % Seg Neutrophils % Lymphocytes % Monocytes % Eosinophils % Basophils % Neutrophils # Lymphocytes # Monocytes # Eosinophils # Basophils # Nucleated RBCs/100 WBC Platelet Estimate Immature Plt Fraction Polychromasia Poikilocytosis Anisocytosis [place] Cells Schistocytes Percent Retic Immature Retic Fraction Retic Hgb Equivalent BUN Creatinine Est GFR ( Amer) Est GFR (Non-Af Amer) BUN/Creatinine Ratio Uric Acid Total Bilirubin Direct Bilirubin AST ALT Lactate Dehydrogenase Urine Color Dark Yellow Yellow Urine Clarity Clear Turbid A Urine pH 6.5 7.0 Ur Specific [place] 1.028 H 1.017 Urine Protein >=1000 H >=300 H Urine Glucose (UA) Normal Normal Urine Ketones Negative Negative Urine Blood Large H Moderate H Urine Nitrite Negative Negative Urine Bilirubin Negative Negative Urine Urobilinogen Normal Normal Ur Leukocyte Esterase Negative Negative Urine Microscopic RBC 50-100 H 5-15 H Urine Microscopic WBC 30-50 H 30-50 H Ur Squamous Epith Cells Many H Many H Urine Bacteria Many H Moderate H Hyaline Casts Few Few Ur Culture Indicated? YES A Urine Creatinine 139 Protein/Creatinin Ratio 12.35 H Urine Total Protein 1716 H Hep Bs Antigen 01/14/17 01/14/17 01/14/17 08:15 11:46 11:46 WBC 6.7 RBC 3.59 L Hgb 9.2 L Hct 30.6 L MCV 85.2 MCH 25.6 L MCHC 30.1 L RDW TNP Plt Count 217 MPV 11.0 Reticulocyte # 0.13 H Immature Gran % 0.6 Seg Neutrophils % 64.5 Lymphocytes % 25.1 Monocytes % 7.9 Eosinophils % 1.3 Basophils % 0.6 Neutrophils # 4.3 Lymphocytes # 1.7 Monocytes # 0.5 Eosinophils # 0.1 Basophils # 0.0 Nucleated RBCs/100 WBC 0.3 H Platelet Estimate Normal Immature Plt Fraction 3.5 Polychromasia 1+ A Poikilocytosis Anisocytosis 2+ A [place] Cells 1+ A Schistocytes Percent Retic 3.7 H Immature Retic Fraction 34.1 Retic Hgb Equivalent 36.8 H BUN 7 Creatinine 0.81 Est GFR ( Amer) > 60 Est GFR (Non-Af Amer) > 60 BUN/Creatinine Ratio 9 Uric Acid 4.5 Total Bilirubin 0.4 Direct Bilirubin 0.1 AST 18 ALT < 6 Lactate Dehydrogenase 217 Urine Color Urine Clarity Urine pH Ur Specific [place] Urine Protein Urine Glucose (UA) Urine Ketones Urine Blood Urine Nitrite Urine Bilirubin Urine Urobilinogen Ur Leukocyte Esterase Urine Microscopic RBC Urine Microscopic WBC Ur Squamous Epith Cells Urine Bacteria Hyaline Casts Ur Culture Indicated? Urine Creatinine 58 Protein/Creatinin Ratio 13.31 H Urine Total Protein 772 H Hep Bs Antigen Labs on day of discharge: Labs from last 24 hours 01/14/17 01/14/17 01/14/17 11:46 11:46 08:15 WBC 6.7 RBC 3.59 L Hgb 9.2 L Hct 30.6 L MCV 85.2 MCH 25.6 L MCHC 30.1 L RDW TNP Plt Count 217 MPV 11.0 Reticulocyte # 0.13 H Immature Gran % 0.6 Seg Neutrophils % 64.5 Lymphocytes % 25.1 Monocytes % 7.9 Eosinophils % 1.3 Basophils % 0.6 Neutrophils # 4.3 Lymphocytes # 1.7 Monocytes # 0.5 Eosinophils # 0.1 Basophils # 0.0 Nucleated RBCs/100 WBC 0.3 H Platelet Estimate Normal Immature Plt Fraction 3.5 Polychromasia 1+ A Poikilocytosis Anisocytosis 2+ A [place] Cells 1+ A Schistocytes Percent Retic 3.7 H Immature Retic Fraction 34.1 Retic Hgb Equivalent 36.8 H BUN 7 Creatinine 0.81 Est GFR ( Amer) > 60 Est GFR (Non-Af Amer) > 60 BUN/Creatinine Ratio 9 Uric Acid 4.5 Total Bilirubin 0.4 Direct Bilirubin 0.1 AST 18 ALT < 6 Lactate Dehydrogenase 217 Urine Color Urine Clarity Urine pH Ur Specific [place] Urine Protein Urine Glucose (UA) Urine Ketones Urine Blood Urine Nitrite Urine Bilirubin Urine Urobilinogen Ur Leukocyte Esterase Urine Microscopic RBC Urine Microscopic WBC Ur Squamous Epith Cells Urine Bacteria Hyaline Casts Ur Culture Indicated? Urine Creatinine 58 Protein/Creatinin Ratio 13.31 H Urine Total Protein 772 H Hep Bs Antigen 01/14/17 01/14/17 01/14/17 08:15 04:10 04:10 WBC RBC Hgb Hct MCV MCH MCHC RDW Plt Count MPV Reticulocyte # Immature Gran % Seg Neutrophils % Lymphocytes % Monocytes % Eosinophils % Basophils % Neutrophils # Lymphocytes # Monocytes # Eosinophils # Basophils # Nucleated RBCs/100 WBC Platelet Estimate Immature Plt Fraction Polychromasia Poikilocytosis Anisocytosis [place] Cells Schistocytes Percent Retic Immature Retic Fraction Retic Hgb Equivalent BUN Creatinine Est GFR ( Amer) Est GFR (Non-Af Amer) BUN/Creatinine Ratio Uric Acid Total Bilirubin Direct Bilirubin AST ALT Lactate Dehydrogenase Urine Color Yellow Dark Yellow Urine Clarity Turbid A Clear Urine pH 7.0 6.5 Ur Specific [place] 1.017 1.028 H Urine Protein >=300 H >=1000 H Urine Glucose (UA) Normal Normal Urine Ketones Negative Negative Urine Blood Moderate H Large H Urine Nitrite Negative Negative Urine Bilirubin Negative Negative Urine Urobilinogen Normal Normal Ur Leukocyte Esterase Negative Negative Urine Microscopic RBC 5-15 H 50-100 H Urine Microscopic WBC 30-50 H 30-50 H Ur Squamous Epith Cells Many H Many H Urine Bacteria Moderate H Many H Hyaline Casts Few Few Ur Culture Indicated? YES A Urine Creatinine 139 Protein/Creatinin Ratio 12.35 H Urine Total Protein 1716 H Hep Bs Antigen 01/14/17 01/14/17 01/13/17 04:05 04:05 13:37 WBC 7.1 RBC 3.44 L Hgb 8.9 L D Hct 29.3 L MCV 85.2 MCH 25.9 L MCHC 30.4 L RDW TNP Plt Count 207 MPV 10.8 Reticulocyte # Immature Gran % 0.6 Seg Neutrophils % 61.7 Lymphocytes % 27.9 Monocytes % 8.4 Eosinophils % 1.0 Basophils % 0.4 Neutrophils # 4.4 Lymphocytes # 2.0 Monocytes # 0.6 Eosinophils # 0.1 Basophils # 0.0 Nucleated RBCs/100 WBC 0.3 H Platelet Estimate Normal Immature Plt Fraction Polychromasia Poikilocytosis 1+ A Anisocytosis 3+ A [place] Cells 2+ A Schistocytes 1+ A Percent Retic Immature Retic Fraction Retic Hgb Equivalent BUN 7 Creatinine 0.80 Est GFR ( Amer) > 60 Est GFR (Non-Af Amer) > 60 BUN/Creatinine Ratio 9 Uric Acid 4.7 Total Bilirubin Direct Bilirubin AST 18 ALT 6 Lactate Dehydrogenase 209 Urine Color Urine Clarity Urine pH Ur Specific [place] Urine Protein Urine Glucose (UA) Urine Ketones Urine Blood Urine Nitrite Urine Bilirubin Urine Urobilinogen Ur Leukocyte Esterase Urine Microscopic RBC Urine Microscopic WBC Ur Squamous Epith Cells Urine Bacteria Hyaline Casts Ur Culture Indicated? Urine Creatinine Protein/Creatinin Ratio Urine Total Protein Hep Bs Antigen Nonreactive 01/13/17 01/13/17 12:40 12:40 WBC RBC Hgb Hct MCV MCH MCHC RDW Plt Count MPV Reticulocyte # Immature Gran % Seg Neutrophils % Lymphocytes % Monocytes % Eosinophils % Basophils % Neutrophils # Lymphocytes # Monocytes # Eosinophils # Basophils # Nucleated RBCs/100 WBC Platelet Estimate Immature Plt Fraction Polychromasia Poikilocytosis Anisocytosis [place] Cells Schistocytes Percent Retic Immature Retic Fraction Retic Hgb Equivalent BUN Creatinine Est GFR ( Amer) Est GFR (Non-Af Amer) BUN/Creatinine Ratio Uric Acid Total Bilirubin Direct Bilirubin AST ALT Lactate Dehydrogenase Urine Color Yellow Urine Clarity Cloudy A Urine pH 7.0 Ur Specific [place] 1.018 Urine Protein >=1000 H Urine Glucose (UA) Normal Urine Ketones Negative Urine Blood Moderate H Urine Nitrite Negative Urine Bilirubin Negative Urine Urobilinogen Normal Ur Leukocyte Esterase Negative Urine Microscopic RBC 5-15 H Urine Microscopic WBC 5-15 H Ur Squamous Epith Cells Many H Urine Bacteria Few Hyaline Casts Moderate H Ur Culture Indicated? YES A Urine Creatinine 83 Protein/Creatinin Ratio 15.71 H Urine Total Protein 1304 H Hep Bs Antigen - Impressions ITS Impressions Retroperitoneum Ultrasound 01/14/17 10:30 IMPRESSION: Mild degree of right-sided hydronephrosis, nonspecific but possibly on the basis of patient's advanced gravid state. The kidneys are otherwise unremarkable. Somewhat limited evaluation of the urinary bladder secondary to patient's advanced gravid state but without bladder wall abnormality identified. Neither ureteral jet could be definitively documented. D/ / 01/14/2017 11:29:49 Terry Riebra MD / [email or web address] Interpreting Provider: Terry Ribera MD Date of admission: 01/13/17 10:19 Primary care physician: Kristi Levine CNP Consults: 01/14/17 08:20 Consult to Oncology Hematology [CONS] Routine Consulting Provider: Pietro Patricia Reason for Consult: hx anemia with hx iron transfusion now showing shistocytes Time Notified: 08:00 Call Completed: Yes Discharging clinician: Pietro Patricia Anticipated date of discharge: 01/14/17 - Patient Status Disposition: Transfer Other Condition: Fair Functional capacity at discharge: bed bound Overall status at discharge: patient is not back to baseline - Discharge Instructions Follow Up With: Kristi Levine CNP [Primary Care Provider] - - Diet and Activity Activity: other Diet: other (ice chips only) Hospital Course [employer] Reason for admission: other (Intrauterine at 34-5/7 weeks, preeclampsia, iron deficient anemia, proteinuria) Discharge diagnosis: other (Same) Hospital course: Patient is a 21-year-old 1 para 0 at 34-5/7 weeks. Presented from the office for evaluation for preeclampsia. Patient had elevated blood pressures proteinuria and increasing edema and was sent for evaluation. Upon arrival to labor and delivery blood pressures were elevated she was given 1 dose labetalol which stabilized her blood pressure. [facility] labs obtained and the patient was stable however patient had large amounts of blood with significant proteinuria with a protein creatinine ratio of over 17. They suspected this is contamination from the vagina because when we will check a should have some vaginal spotting. Patient to get a catheter urine which also showed this elevated protein creatinine ratio. Blood pressure remained stable they observe the patient. On day #1 she continued to have slightly elevated blood pressures we did order a renal ultrasound to rule out stones for the hematuria which was negative. We placed a catheter. Another urinalysis on the patient still showing large amounts approaching blood with a protein creatinine ratio still in the 15.5 range. Patient has a history of needing iron transfusions seen hematology. They did evaluate the patient because she had schistocytes and is concerned she is beginning to utilize. Patient will repeat labs except still normal hemoglobin is stable but she is showing reticulocytes now and again the schistocytes. I did discuss the case with maternal medicine Dr. Hobson recommended we transfer the patient to the facility for close observation possible delivery. Did recommend giving the patient betamethasone 12 mg IM prior to discharge. We will send the patient by ambulance along with all records. Patient is stable heart tones 140s reactive occasional contractions seen last examination she was 1.5 cm dilated. Time Attestation: Total time spent providing and/or coordinating discharge services: Exam - Constitutional General appearance IM: A&O X 3 - Respiratory Respiratory exam: Present: CTAB - Cardiovascular Cardiovascular exam IM: Present: RRR - GI/Abdominal GI/Abdominal exam IM: normal bowel sounds - External exam: swelling (severe labial edema) Uterine Tone: Firm - Extremities Exam Additional comments: +3 pitting edema with 2/4 DTR - VTE Reasons for not Prescribing Prophylaxis: Treatment not Indicated - Low risk for VTE
[2017-01-14] MEDS: cephALEXin 500 MG CAPSULE PO SCH (13:44)
== END 2017-01-14 13:49 | disposition short-term general hospital (02) ==
LOC: 1NENULAB